=== PATIENT | male | born 1945 | race Caucasian/White ===

== ENCOUNTER 2022-01-14 11:16 | Emergency (ER) | payer MEDICARE, OTHER ==
[~2022-01-14] VITALS: Ht 172 cm; Wt 113.6 kg
[2022-01-14] MEDS ORDERED: ONDANSETRON 4 MG/2 ML (SDV) Z0FRAN IVP STA (11:28)
[2022-01-14] MEDS ORDERED: NS IV 1000 ML 1,000 ML IV STA (11:28)
--- NOTE | 2022-01-14 11:35 | ED General ---
General Stated Complaint: LRQ PAIN; NAUSEA Source of Information: Patient History of Present Illness Date Seen by Provider: Jan 14, 2022 Time Seen by Provider: 11:20 Initial Comments 76-year-old male presenting with complaints of right lower quadrant abdominal pain since last night. He has nausea along with this. He stated that it started last night and was more severe. He also has been doing a lot of lifting and working. He was unsure if this might be a pulled muscle or if there was something going on inside his belly. He denies any pain with urination, diarrhea, constipation, vomiting, fever, chills. He did eat some cereal this morning around 7 AM to be able to take his blood pressure medication. Otherwise he has felt nauseated and not wanting to eat or drink and fear of throwing up. Timing/Duration: 12 Hours Severity: Moderate Modifying Factors: worse with Movement Associated Systoms: No Chest Pain, No Cough, No Diaphoresis, No Fever/Chills, No Headaches, No Loss of Appetite, No Malaise; Nausea/Vomiting (nausea but no vomiting); No Rash, No Seizure, No Shortness of Air, No Syncope, No Weakness Allergies and Home Medications Allergies Coded Allergies: hydrocodone (Verified Allergy, Intermediate, 01/14/22) Agitation Patient Home Medication List Home Medication List Reviewed: Yes Ondansetron (Ondansetron Odt) 4 Mg Tab.rapdis, 4 MG PO Q6H PRN for NAUSEA/VOMITING Prescribed by: NICK ASTUDILLO on 01/14/22 1340 Review of Systems Review of Systems Constitutional: No chills, No fever EENTM: no symptoms reported Respiratory: no symptoms reported Cardiovascular: no symptoms reported Gastrointestinal: see HPI Genitourinary: no symptoms reported Musculoskeletal: no symptoms reported Skin: no symptoms reported Psychiatric/Neurological: No Symptoms Reported Past [id number] Hx Past Medical History Surgery/Hospitalization HX: Hypertension Physical Exam Vital Signs Vital Signs - First Documented 01/14/22 13:05 Temp 36.2 Pulse 117 Resp 16 B/P (MAP) 120/96 (104) Pulse Ox 95 O2 Delivery Room Air Capillary Refill : Height, Weight, BMI Height: '" Weight: lbs. oz. kg; BMI Method: General Appearance: No Apparent Distress, WD/WN HEENT: PERRL/EOMI, Pharynx Normal Neck: Full Range of Motion, Normal Inspection, Non Tender, Supple Respiratory: Chest Non Tender, Lungs Clear, Normal Breath Sounds, No Accessory Muscle Use, No Respiratory Distress Cardiovascular: Regular Rate, Rhythm, Normal Peripheral Pulses Gastrointestinal: Normal Bowel Sounds, No Pulsatile Mass, Non Tender, Soft; No Guarding, No Rebound Rectal: Deferred Back: No CVA Tenderness Extremity: Normal Capillary Refill, Normal Inspection, No Pedal Edema Neurologic/Psychiatric: Alert, Oriented x3, No Motor/Sensory Deficits, seconds handler II- XII Norm as Tested Skin: Normal Color, Warm/Dry Progress/Results/Core Measures Suspected Sepsis SIRS Temperature: Pulse: Respiratory Rate: Laboratory Tests 01/14/22 11:30: White Blood Count 7.7 Blood Pressure / Mean: Laboratory Tests 01/14/22 11:30: Creatinine 0.81, Platelet Count 258, Total Bilirubin 0.7 Results/Orders Lab Results Laboratory Tests Test 01/14/22 11:30 01/14/22 11:38 Range/Units White Blood Count 7.7 4.3-11.0 10^3/uL Red Blood Count 4.94 4.30-5.52 10^6/uL Hemoglobin 15.8 13.3-17.7 g/dL Hematocrit 45 40-54 % Mean Corpuscular Volume 90 80-99 fL Mean Corpuscular Hemoglobin 32 25-34 pg Mean Corpuscular Hemoglobin Concent 35 32-36 g/dL Red Cell Distribution Width 13.4 10.0-14.5 % Platelet Count 258 130-400 10^3/uL Mean Platelet Volume 9.3 9.0-12.2 fL Immature Granulocyte % (Auto) 0 % Neutrophils (%) (Auto) 86 H 42-75 % Lymphocytes (%) (Auto) 7 L 12-44 % Monocytes (%) (Auto) 5 0-12 % Eosinophils (%) (Auto) 2 0-10 % Basophils (%) (Auto) 0 0-10 % Neutrophils # (Auto) 6.7 1.8-7.8 10^3/uL Lymphocytes # (Auto) 0.6 L 1.0-4.0 10^3/uL Monocytes # (Auto) 0.4 0.0-1.0 10^3/uL Eosinophils # (Auto) 0.1 0.0-0.3 10^3/uL Basophils # (Auto) 0.0 0.0-0.1 10^3/uL Immature Granulocyte # (Auto) 0.0 0.0-0.1 10^3/uL Neutrophils % (Manual) 80 % Lymphocytes % (Manual) 6 % Monocytes % (Manual) 5 % Eosinophils % (Manual) 2 % Basophils % (Manual) 0 % Band Neutrophils 4 % Atypical Lymphocytes 3 % Platelet Estimate NORMAL Blood Morphology Comment NORMAL Sodium Level 140 135-145 MMOL/L Potassium Level 4.0 3.6-5.0 MMOL/L Chloride Level 104 98-107 MMOL/L Carbon Dioxide Level 22 21-32 MMOL/L Anion Gap 14 5-14 MMOL/L Blood Urea Nitrogen 16 7-18 MG/DL Creatinine 0.81 0.60-1.30 MG/DL Estimat Glomerular Filtration Rate 93 BUN/Creatinine Ratio 20 Glucose Level 107 H 70-105 MG/DL Calcium Level 8.6 8.5-10.1 MG/DL Corrected Calcium 8.2 L 8.5-10.1 MG/DL Total Bilirubin 0.7 0.1-1.0 MG/DL Aspartate Amino Transf (AST/SGOT) 29 5-34 U/L Alanine Aminotransferase (ALT/SGPT) 21 0-55 U/L Alkaline Phosphatase 68 40-136 U/L Total Protein 7.4 6.4-8.2 GM/DL Albumin 4.5 3.2-4.5 GM/DL Lipase 15 8-78 U/L Urine Color DARK YELLOW Urine Clarity CLEAR Urine pH 6.0 5-9 Urine Specific [place] >=1.030 1.016-1.022 Urine Protein 1+ H NEGATIVE Urine Glucose (UA) NEGATIVE NEGATIVE Urine Ketones TRACE H NEGATIVE Urine Nitrite NEGATIVE NEGATIVE Urine Bilirubin NEGATIVE NEGATIVE Urine Urobilinogen 0.2 < = 1.0 MG/DL Urine Leukocyte Esterase NEGATIVE NEGATIVE Urine RBC (Auto) NEGATIVE NEGATIVE Urine RBC NONE /HPF Urine WBC 2-5 /HPF Urine Squamous Epithelial Cells NONE /HPF Urine Crystals NONE /LPF Urine Bacteria NEGATIVE /HPF Urine Casts NONE /LPF Urine Mucus MODERATE H /LPF Urine Culture Indicated NO My Orders Orders - NICK ASTUDILLO MD Comprehensive Metabolic Panel (01/14/22 11:28) Lipase (01/14/22 11:28) Ua Culture If Indicated (01/14/22 11:28) Ed Iv/Invasive Line Start (01/14/22 11:28) Cbc With Automated Diff (01/14/22 11:28) Ct Abdomen/Pelvis W (01/14/22 11:28) Ns Iv 1000 Ml (Sodium Chloride 0.9%) (01/14/22 11:28) Ondansetron Injection (Zofran Injectio (01/14/22 11:28) Iohexol Injection (Omnipaque 350 Mg/Ml 1 (01/14/22 12:00) Received Contrast (Hold Metformin- Contr (01/14/22 12:00) Sodium Chloride Flush (Catheter Flush Sy (01/14/22 12:00) Ns (Ivpb) (Sodium Chloride 0.9% Ivpb Bag (01/14/22 12:00) Manual Differential (01/14/22 11:30) Medications Given in ED Current Medications Medications Dose Ordered Sig/Nico Route Start Time Stop Time Status Last Admin Dose Admin Iohexol 100 ml ONCE ONCE IV 01/14/22 12:00 01/14/22 12:01 DC 01/14/22 12:25 100 ML Sodium Chloride 10 ml NEEDED PRN IV 01/14/22 12:00 01/14/22 13:55 DC 01/14/22 12:25 10 ML Sodium Chloride 100 ml ONCE ONCE IV 01/14/22 12:00 01/14/22 12:01 DC 01/14/22 12:25 80 ML Vital Signs/I&O 01/14/22 13:05 Temp 36.2 Pulse 117 Resp 16 B/P (MAP) 120/96 (104) Pulse Ox 95 O2 Delivery Room Air Capillary Refill : Progress Note #1: Progress Note Obtain basic labs, urinalysis had a CT scan of abdomen and pelvis. Give normal saline 1 L IV for hydration, Zofran 4 mg IV for nausea. He denies having any acute pain right now. Differential diagnosis includes appendicitis, diverticulitis, colitis, renal colic from a kidney stone, pyelonephritis, UTI. Progress Note #2: Progress Note Labs are stable without acute significant abnormality on his CBC or chemistry. His urinalysis was concentrated. He had no acute appendicitis, colitis, diverticulitis on CT scan of his abdomen and pelvis. There was no acute process. He had findings for diffuse lipomatosis of his abdomen on his CT. Counseled patient about findings and results and advised him that he should try a liquid or bland diet for 24 hours since he was having some nausea. Also will send prescription for some Zofran dissolving tablets. Check back with the clinic for continued concerns. Return if he has worsening symptoms. Diagnostic Imaging Diagonstic Imaging: CT Plain Films/CT/US/NM/MRI: abdomen, pelvis Comments [facility]. [place], [place] NAME: ELHAM MADISON REC#: [id number] PT STATUS: REG ER : 1945 PHYSICIAN: NICK ASTUDILLO MD ADMIT DATE: 01/14/22/ER FS Signed Date of Exam:01/14/22 CT ABDOMEN/PELVIS W PROCEDURE: CT abdomen and pelvis with contrast. TECHNIQUE: Multiple contiguous axial images were obtained through the abdomen and pelvis after administration of intravenous contrast. Auto Exposure Controls were utilized during the CT exam to meet ALARA standards for radiation dose reduction. All CT scans use one or more of the following dose optimizing techniques: Automated exposure control, MA and/or KvP adjustment based on patient size and exam type or iterative reconstruction. INDICATION: Right lower quadrant abdominal pain. FINDINGS: There is mild diffuse hepatic steatosis. No focal hepatic, gallbladder, pancreatic, adrenal gland, or splenic abnormality is identified. There is no biliary ductal dilatation. Kidneys are also unremarkable without hydronephrosis or solid renal mass. There is no free fluid. The appendix has a normal appearance. There is no evidence of bowel obstruction. No focal inflammation or organized fluid collection is identified. Urinary bladder is incompletely distended which limits evaluation. Prostatic calcifications are noted. The abdominal cavity is distended likely due to lipomatosis. IMPRESSION: No acute abnormality is identified. 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 Dictated by: Dictated on workstation # [id number] Dict: 01/14/22 1230 Trans: 01/14/22 1324 [id number] Interpreted by: JACOB HINOJOSA MD Electronically signed by: JACOB HINOJOSA MD 01/14/22 1324 Reviewed: Reviewed by Me Departure Impression Primary Impression: Right lower quadrant abdominal pain Additional Impression: Abdominal wall pain Disposition: 01 HOME, SELF-CARE Condition: Stable Departure-Patient Inst. Decision time for Depature: 13:38 Referrals: CHRISTOPHER ANAND MD (PCP) Primary Care Physician Patient Instructions: Flank Pain ED, Abdominal Pain, Adult ED Add. Discharge Instructions: Try following a liquid or bland diet for the next 24 hours to see if that helps with your nausea. Use the dissolving nausea tablets if needed to help keep your stomach settled. Consider alternating ice and heat to your right side to help from a muscle strain and abdominal wall standpoint. If your pain and symptoms are worsening and not improving then you could return or check with the clinic about repeat evaluation Scripts Ondansetron (Ondansetron Odt) 4 Mg Tab.rapdis 4 MG PO Q6H PRN for NAUSEA/VOMITING for 2 Days, #8 TAB 0 Refills Prov: NICK ASTUDILLO MD 01/14/22 NICK ASTUDILLO MD Jan 14, 2022 11:35
[2022-01-14 11:36] LABS: BASOPHILS % (AUTO) 0 % (0-10); EOSINOPHILS # (AUTO) 0.1 10^3/uL (0.0-0.3); EOSINOPHILS % (AUTO) 2 % (0-10); HEMATOCRIT 45 % (40-54); HEMOGLOBIN 15.8 g/dL (13.3-17.7); LYMPHOCYTES # (AUTO) 0.6 10^3/uL (1.0-4.0); LYMPHOCYTES % (AUTO) 7 % (12-44); MEAN CORPUSCULAR HEMOGLOBIN 32 pg (25-34); MEAN CORPUSCULAR HGB CONC 35 g/dL (32-36); MEAN CORPUSCULAR VOLUME 90 fL (80-99); MEAN PLATELET VOLUME 9.3 fL (9.0-12.2); MONOCYTES # (AUTO) 0.4 10^3/uL (0.0-1.0); MONOCYTES % (AUTO) 5 % (0-12); NEUTROPHILS # (AUTO) 6.7 10^3/uL (1.8-7.8); NEUTROPHILS % (AUTO) 86 % (42-75); PLATELET COUNT 258 10^3/uL (130-400); WHITE BLOOD COUNT 7.7 10^3/uL (4.3-11.0)
[2022-01-14 11:42] LABS: BILIRUBIN,URINE NEGATIVE (NEGATIVE); GLUCOSE, URINE (UA) NEGATIVE (NEGATIVE); KETONES,URINE TRACE (NEGATIVE); LEUKOCYTE ESTERASE ,URINE NEGATIVE (NEGATIVE); NITRITE,URINE NEGATIVE (NEGATIVE); PROTEIN,URINE 1+ (NEGATIVE)
[2022-01-14] MEDS ORDERED: IOHEXOL 350 MG/ML 100 ML (OMNIPAQUE 350) VIAL IV ONE (12:00)
[2022-01-14] MEDS ORDERED: CATHETER FLUSH 10 ML SYR IV PRN (12:00)
[2022-01-14] MEDS ORDERED: NS 100 ML (IVPB) BAG IV ONE (12:00)
[2022-01-14] MEDS ORDERED: HOLD METFORMIN - RECEIVED CONTRAST 20 ML VIAL IV SCH (12:00)
[2022-01-14 12:04] LABS: ALBUMIN 4.5 GM/DL (3.2-4.5); BILIRUBIN,TOTAL 0.7 MG/DL (0.1-1.0); CALCIUM 8.6 MG/DL (8.5-10.1); CREATININE SERUM 0.81 MG/DL (0.60-1.30); TOTAL PROTEIN 7.4 GM/DL (6.4-8.2)
[2022-01-14 12:06] LABS: COLOR,URINE DARK YELLOW
[2022-01-14 12:07] LABS: BACTERIA,URINE NEGATIVE /HPF; CLARITY,URINE CLEAR
[2022-01-14 12:08] LABS: ATYPICAL LYMPHOCYTES 3 %; BAND NEUTROPHILS 4 %; BASOPHILS % (MANUAL) 0 %; EOSINOPHILS % (MANUAL) 2 %; LYMPHOCYTES % (MANUAL) 6 %; MONOCYTES % (MANUAL) 5 %; NEUTROPHILS % (MANUAL) 80 %; PLATELET ESTIMATE NORMAL; RBC MORPH NORMAL
--- NOTE | 2022-01-14 12:39 | Diagnostic Imaging Report ---
PROCEDURE: CT abdomen and pelvis with contrast. TECHNIQUE: Multiple contiguous axial images were obtained through the abdomen and pelvis after administration of intravenous contrast. Auto Exposure Controls were utilized during the CT exam to meet ALARA standards for radiation dose reduction. All CT scans use one or more of the following dose optimizing techniques: Automated exposure control, MA and/or KvP adjustment based on patient size and exam type or iterative reconstruction. INDICATION: Right lower quadrant abdominal pain. FINDINGS: There is mild diffuse hepatic steatosis. No focal hepatic, gallbladder, pancreatic, adrenal gland, or splenic abnormality is identified. There is no biliary ductal dilatation. Kidneys are also unremarkable without hydronephrosis or solid renal mass. There is no free fluid. The appendix has a normal appearance. There is no evidence of bowel obstruction. No focal inflammation or organized fluid collection is identified. Urinary bladder is incompletely distended which limits evaluation. Prostatic calcifications are noted. The abdominal cavity is distended likely due to lipomatosis. IMPRESSION: No acute abnormality is identified. 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 Dictated by: Dictated on workstation # [id number]
[2022-01-14 13:05] VITALS: BP 120/96
[2022-01-14] MEDS ORDERED: ONDA4TAB11 PO (13:40)
== END 2022-01-14 13:45 | disposition home or self-care (01) ==
LOC: ER FS 11:19
DX: R10.31 Right lower quadrant pain (principal)
CPT/HCPCS: 36415; 74177; 80053; 81000; 83690; 85007; 85027; Q9967